=== PATIENT | male | born 1950 | race Caucasian/White ===

== ENCOUNTER 2022-07-03 18:34 | Emergency (ER) | payer BC ==
[2022-07-03] MEDS ORDERED: Dexamethasone 10 MG/ML VIAL ONE (19:50)
== END 2022-07-03 20:44 | disposition home or self-care (01) ==
LOC: CSHERS 18:34
DX: M25.561 Pain in right knee (principal); E78.5 Hyperlipidemia, unspecified; Z79.899 Other long term (current) drug therapy
CPT/HCPCS: 96372; J1100

== ENCOUNTER 2022-11-17 06:14 | Emergency (ER) | payer BC | END 2022-11-17 08:30 | disposition home or self-care (01) | LOC: CSHERS 06:14 | DX: M25.561 Pain in right knee (principal); E78.5 Hyperlipidemia, unspecified ==